=== PATIENT | male | born 1970 ===

== ENCOUNTER 2024-02-08 23:25 | Emergency (ER) | payer MEDICAID ==
[~2024-02-08] VITALS: Ht 182.9 cm; Wt 97.5 kg
[2024-02-09 01:12] VITALS: BP 145/88; TEMP 98; O2SAT 100
== END 2024-02-09 01:13 ==
LOC: ER 23:26
DX: S09.8XXA Other specified injuries of head, initial encounter (principal); H92.22 Otorrhagia, left ear; I13.0 Hypertensive heart and chronic kidney disease with heart failure and stage 1 through stage 4 chronic kidney disease, or unspecified chronic kidney disease; I50.9 Heart failure, unspecified; N18.9 Chronic kidney disease, unspecified; I25.10 Atherosclerotic heart disease of native coronary artery without angina pectoris; K21.9 Gastro-esophageal reflux disease without esophagitis; E11.22 Type 2 diabetes mellitus with diabetic chronic kidney disease; E78.5 Hyperlipidemia, unspecified; Z88.1 Allergy status to other antibiotic agents; Z88.0 Allergy status to penicillin; X58.XXXA Exposure to other specified factors, initial encounter; Y93.89 Activity, other specified; Y92.89 Other specified places as the place of occurrence of the external cause; Y99.8 Other external cause status
CPT/HCPCS: A4606; A4663